=== PATIENT | male | born 1945 | race Two or more races ===

== ENCOUNTER 2017-03-30 13:43 | Emergency (ER) | payer OTHER ==
[~2017-03-30] VITALS: Ht 177.8 cm; Wt 88.0 kg
[2017-03-30] MEDS ORDERED: INDERAL XL120 MG (14:01)
[2017-03-30] MEDS ORDERED: ATORVASTATIN CA40 MG (14:01)
== END 2017-03-30 21:18 | disposition home or self-care (01) ==
LOC: ER 13:43
DX: R60.0 Localized edema (principal); M79.605 Pain in left leg; M79.604 Pain in right leg; I73.9 Peripheral vascular disease, unspecified

== ENCOUNTER 2017-04-12 14:48 | Emergency (ER) | payer OTHER ==
[~2017-04-12] VITALS: Ht 177.8 cm; Wt 90.7 kg
[~2017-04-12 14:48] MED LIST: ATORVASTATIN CA40 MG; INDERAL XL120 MG
== END 2017-04-12 19:20 | disposition home or self-care (01) ==
LOC: ER 14:48
DX: R60.0 Localized edema (principal); I10 Essential (primary) hypertension; J90 Pleural effusion, not elsewhere classified